=== PATIENT | female | born 1945 | race Caucasian/White ===

== ENCOUNTER → 2016-09-08 | Outpatient (CLI) | payer OTHER | LOC: FIMAGING 12:13 | PROVIDERS: ATTEND Family Medicine | DX: M19.079 Primary osteoarthritis, unspecified ankle and foot (principal) ==

== ENCOUNTER → 2016-10-20 | Outpatient (CLI) | payer OTHER | LOC: FIMAGING 14:01 | PROVIDERS: ATTEND Family Medicine | DX: E04.1 Nontoxic single thyroid nodule (principal); R13.10 Dysphagia, unspecified ==

== ENCOUNTER → 2018-03-22 | Outpatient (CLI) | payer OTHER | LOC: BHFA 09:30 | PROVIDERS: ATTEND Internal Medicine Cardiovascular Disease | DX: R07.9 Chest pain, unspecified (principal) ==

== ENCOUNTER → 2018-03-25 | Outpatient (CLI) | payer OTHER | LOC: FIMAGING 09:31 | PROVIDERS: ATTEND Family Medicine | DX: Z12.31 Encounter for screening mammogram for malignant neoplasm of breast (principal) ==

== ENCOUNTER → 2018-04-20 | Outpatient (CLI) | payer OTHER | LOC: FIMAGING 07:03 | PROVIDERS: ATTEND Family Medicine | DX: N85.8 Other specified noninflammatory disorders of uterus (principal); D25.9 Leiomyoma of uterus, unspecified; N28.1 Cyst of kidney, acquired; Z87.59 Personal history of other complications of pregnancy, childbirth and the puerperium ==